=== PATIENT | female | born 1955 | race Caucasian/White ===

== ENCOUNTER 2020-03-31 18:30 | Emergency (ER) | payer SELFPAY ==
[2020-03-31 18:39] VITALS: TEMP 98.6; BMI 25.7
[2020-03-31] MEDS ORDERED: ACETAMINOPHEN 500 MG TABLET (FP) PO ONE (18:41)
[2020-03-31] MEDS ORDERED: ACETAMINOPHEN 500 MG TABLET (FP) ONE (18:44)
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
[2020-03-31 19:11] LABS: EPITHELIAL CELLS MODERATE /hpf; TRIPLE PHOSPHATE CRYSTAL FEW /hpf (NONE SEEN)
[2020-03-31 19:12] LABS: AMORP PHOS 2+ /hpf (NONE SEEN)
[2020-03-31] MEDS ORDERED: NITROFURANTOIN MACROCRYSTAL 50 MG CAPSULE (FP) PO SCH (19:15)
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
[2020-03-31] MEDS ORDERED: NITROFURANTOIN MACROCRYSTAL 50 MG CAPSULE (FP) ONE (19:24)
[2020-03-31 20:08] VITALS: BP 157/85; PULSE 78
--- NOTE | 2020-04-02 10:24 | EKG ---
Test Reason : Blood Pressure : / mmHG Vent. Rate : 084 BPM Atrial Rate : 084 BPM P-R Int : 140 ms QRS Dur : 084 ms QT Int : 376 ms P-R-T Axes : 045 026 031 degrees QTc Int : 444 ms NORMAL SINUS RHYTHM NORMAL ECG NO PREVIOUS ECGS AVAILABLE Confirmed by Daisy Torres ([id number]) on 04/02/2020 10:24:36 AM Referred By: TRES STERLING Confirmed By:Daisy Torres
== END 2020-03-31 21:10 | disposition home or self-care (01) ==
LOC: FER 18:30
DX: S20.219A Contusion of unspecified front wall of thorax, initial encounter (principal); N39.0 Urinary tract infection, site not specified
CPT/HCPCS: 71250-TC; 81003; 81015; 87086; 87186; 93005; 99285-25